=== PATIENT | male | born 1985 | race Caucasian/White ===

== ENCOUNTER 2017-09-13 17:10 | Emergency (ER) | payer OTHER ==
[2017-09-13] MEDS ORDERED: GELATIN SPONGE,ABSORB (SMALL) 1 EACH SPONGE TOPICAL STA (17:31)
--- NOTE | 2017-09-13 17:59 | ED ---
General Adult HPI - General Chief complaint: Wound/Laceration Stated complaint: injury/laceration middle finger left hand Time Seen by Provider: 09/13/17 17:23 Source: patient, RN notes reviewed Mode of arrival: ambulatory Limitations: no limitations - History of Present Illness Initial comments: 32-year-old male presents to the emergency department with a chief complaint of right middle finger laceration. He was working on a car and cut his finger. Patient states that his tetanus is up-to-date. Patient denies any other injuries at this time. Patient states history is throbbing.Patient denies any recent fever, chills, shortness of breath, chest pain, back pain, abdominal pain , nausea vomiting, numbness or tingling, dysuria or hematuria, constipation or diarrhea, headaches or visual changes, or any other current symptoms. - Related Data Allergies Allergy/AdvReac Type Severity Reaction Status Date / Time No Known Allergies Allergy Verified 09/13/17 17:22 Review of Systems ROS Statement: Those systems with pertinent positive or pertinent negative responses have been documented in the HPI. ROS Other: All systems not noted in ROS Statement are negative. Past Medical History Past Medical History: No Reported History History of Any Multi-Drug Resistant Organisms: None Reported Past Surgical History: Hernia Repair Past Psychological History: No Psychological Hx Reported Smoking Status: Current some day smoker Past Alcohol Use History: None Reported Past Drug Use History: None Reported General Exam - General Exam Comments Initial Comments: General: The patient is awake and alert, in no distress, and does not appear acutely ill. Neck: The neck is supple, there is no tenderness. Cardiovascular: There is a regular rate and rhythm. No murmur, rub or gallop is appreciated. Respiratory: Lungs are clear to auscultation, respirations are non-labored, breath sounds are equal. No wheezes, stridor, rales, or rhonchi. Musculoskeletal: Sensation intact with 2+ pulses. X-ray. Full range of motion of the right hand. Patient does appear to have a laceration to the tip aspect of the right middle finger. Does appear to have complete skin avulsion besides the one small piece of skin. Due to patient does appear to be intact. Neurological: CN II-XII intact, There are no obvious motor or sensory deficits. Coordination appears grossly intact. Speech is normal. Skin: Skin is warm and dry and no rashes or lesions are noted. Psychiatric: Normal mood and affect. Limitations: no limitations Course Vital Signs 09/13/17 17:17 Temperature 97.8 F Pulse Rate 76 Respiratory 18 Rate Blood Pressure 134/80 O2 Sat by Pulse 99 Oximetry Medical Decision Making - Medical Decision Making 32-year-old male presents for right middle finger laceration. This time patient was offered suture care. We discussed also doing x-ray. This time he does not want the sutures are the x-rays. We Did [address] [place] we discussed care we discussed follow-up return parameters all questions. Patient stated that he understood and he is agreement this plan. All questions have been answered. He will be discharged. Disposition Clinical Impression: Laceration of right middle finger Disposition: HOME SELF-CARE Condition: Stable Instructions: Laceration (ED) Additional Instructions: Please use medication as discussed. Please follow up with family doctor if symptoms have not improved over the next two days. Please return to the emergency room if your symptoms increase or worsen or for any other concerns. You may remove bandage in 72 hours. Referrals: Troy Braxton Jr, [Primary Care Provider] - 1-2 days Time of Disposition: 17:59
[2017-09-13 18:07] VITALS: BP 126/74; PULSE 78; RESP 20; TEMP 97.2
== END 2017-09-13 18:07 | disposition home or self-care (01) ==
LOC: EC 17:10
DX: S61.212A Laceration without foreign body of right middle finger without damage to nail, initial encounter (principal); F17.200 Nicotine dependence, unspecified, uncomplicated; W23.0XXA Caught, crushed, jammed, or pinched between moving objects, initial encounter; Y92.009 Unspecified place in unspecified non-institutional (private) residence as the place of occurrence of the external cause
CPT/HCPCS: 99282